=== PATIENT | female | born 1990 | race Caucasian/White ===

== ENCOUNTER 2020-04-13 18:31 | Outpatient (NON) | payer MEDICARE, SELFPAY ==
[2020-04-13 19:02] LABS: Alanine Aminotransferase 27 U/L (14-59); Albumin Level 3.5 g/dL (3.4-5.0); Alkaline Phosphatase 88 U/L (46-116); Anion Gap 12 mmol/L (8-16); Aspartate Amino Transferase 21 U/L (15-37); Bilirubin,Total 0.4 mg/dL (0.00-1.00); Blood Urea Nitrogen 7 mg/dL (7-18); Calcium 8.7 mg/dL (8.5-10.1); Carbon Dioxide 24 mmol/L (21-32); Chloride 104 mmol/L (98-108); Estimated Glomerular Filt Rate > 60; Glucose 52 mg/dL (70-99); Osmolality Calculated 285 mOsm/kg (285-295); Potassium 4.5 mmol/L (3.5-5.1); Sodium 140 mmol/L (136-145); Total Protein 6.8 g/dL (6.4-8.2)
[2020-04-17 00:10] LABS: Tobramycin Trough <0.6 mg/L (1.0-2.0)
== END 2020-04-13 18:32 ==
DX: E84.9 Cystic fibrosis, unspecified (principal); Z79.2 Long term (current) use of antibiotics
CPT/HCPCS: 36415; 80053; 80200

== ENCOUNTER 2020-04-15 15:01 | Outpatient (NON) | payer MEDICARE, SELFPAY ==
[2020-04-15 16:20] LABS: Hematocrit 37.8 % (35.0-49.0); Hemoglobin 12.7 g/dL (12.0-15.0); Mean Corpuscular HGB Conc 33.6 g/dL (32.0-36.0); Mean Corpuscular Hemoglobin 32.2 pg (27.0-31.0); Mean Corpuscular Volume 95.9 fL (78.0-102.0); Mean Platelet Volume 11.1 fl (9.2-11.8); Platelet Count Result 218 K/mm3 (150-420); Red Blood Count 3.94 M/mm3 (4.20-5.40); Red Cell Distribution Width 12.5 % (11.6-14.4); White Blood Count 7.7 K/mm3 (4.8-10.8)
[2020-04-15 17:12] LABS: Platelet Estimate Adequate (Adequate)
[2020-04-15 17:16] LABS: Band Neutrophils Percent 0 % (0-6); Basophils Percent Manual 0 % (0-1); Eosinophils Absolute Manual 0.61 K/mm3 (0.02-0.5); Eosinophils Percent Manual 8 % (1-6); Lymphocytes Absolute Manual 2.15 K/mm3 (1.1-4.5); Lymphocytes Percent Manual 28 % (18-44); Monocytes Absolute Manual 0.77 K/mm3 (0.1-0.90); Monocytes Percent Manual 10 % (3-9); Neutrophils Absolute Manual 4.15 K/mm3 (1.7-7.2); Neutrophils Percent Manual 54 % (46-73); Total Cells Counted 100
== END 2020-04-15 15:02 ==
LOC: CHSLAB 15:04
DX: E84.9 Cystic fibrosis, unspecified (principal); Z79.899 Other long term (current) drug therapy
CPT/HCPCS: 36415; 85025